=== PATIENT | female | born 1955 | race Hispanic/Latino ===

== ENCOUNTER → 2018-08-08 | Outpatient (CLI) | payer OTHER ==
--- NOTE | 2018-08-10 08:32 | Diagnostic Imaging Report ---
#[id number] - MGSCRBIL #BILATERAL DIGITAL SCREENING MAMMOGRAM WITH CAD: 08/08/2018 CLINICAL: Routine screening. Comparison is made to exams dated: 02/03/2017 mammogram and 05/20/2015 mammogram - [facility]. Current study contains 4 films. There are scattered fibroglandular elements in both breasts. Current study was also evaluated with a Computer Aided Detection (CAD) system. There is a benign calcification in both breasts. No significant masses, calcifications, or other findings are seen in either breast. There has been no significant interval change. IMPRESSION: BENIGN There is no mammographic evidence of malignancy. A 1 year screening mammogram is recommended. The patient will be notified by letter of the results. Pineda gabriel/delphine:08/09/2018 15:05:53 [employer]: Arielle LOJA(R)(M), [facility] letter sent: Compared to Prior B9 Mammogram BI-RADS: 2 Benign
== END ==
LOC: MAMMO 10:33
PROVIDERS: ATTEND Internal Medicine
DX: Z12.31 Encounter for screening mammogram for malignant neoplasm of breast (principal)
CPT/HCPCS: 77067

== ENCOUNTER 2020-11-22 15:39 | Emergency (ER) | payer SELFPAY ==
[~2020-11-22] VITALS: Ht 160 cm; Wt 68.0 kg
[2020-11-22] MEDS ORDERED: IBUPROFEN 600 MG TAB PO STA (16:46)
[2020-11-22] MEDS ORDERED: HYDROCODONE/APAP 5MG-325MG TAB PO ONE (17:00)
[2020-11-22] MEDS ORDERED: HYDROCODONE/APAP 5MG-325MG TAB ONE (17:21)
[2020-11-22] MEDS ORDERED: IBUPROFEN 600 MG TAB ONE (17:21)
[2020-11-22] MEDS ORDERED: HYDROCODON-ACE1 EA11 PO ×2 (19:04→19:08)
[2020-11-22] MEDS ORDERED: IBUPROFEN600 MG PO (19:09)
[2020-11-22 19:20] VITALS: BP 139/72
== END 2020-11-22 19:20 | disposition home or self-care (01) ==
LOC: FSED 15:43
DX: S52.125A Nondisplaced fracture of head of left radius, initial encounter for closed fracture (principal); W17.89XA Other fall from one level to another, initial encounter; Y92.008 Other place in unspecified non-institutional (private) residence as the place of occurrence of the external cause
CPT/HCPCS: 70450; 99284

== ENCOUNTER → 2022-10-15 | Outpatient (CLI) | payer OTHER ==
[~2022-10-15] MED LIST: HYDROCODON-ACE1 EA11 PO; IBUPROFEN600 MG PO
== END ==
LOC: EDBD 10-07 09:30 → MAMMO 10:08
PROVIDERS: ATTEND Internal Medicine
DX: Z12.31 Encounter for screening mammogram for malignant neoplasm of breast (principal); E11.51 Type 2 diabetes mellitus with diabetic peripheral angiopathy without gangrene
CPT/HCPCS: 77067

== ENCOUNTER → 2023-10-13 | Outpatient (REF) | payer OTHER | LOC: MAMMO 09:47 | PROVIDERS: ATTEND Internal Medicine | DX: Z12.31 Encounter for screening mammogram for malignant neoplasm of breast (principal) | CPT/HCPCS: 77067 ==

== ENCOUNTER 2024-04-19 10:09 | Emergency (ER) | payer OTHER ==
[~2024-04-19] VITALS: Ht 160 cm; Wt 64.9 kg
[2024-04-19] MEDS: ACETAMINOPHEN 325 MG TAB PO ONE (10:33)
[2024-04-19 11:22] VITALS: PULSE 91; RESP 18; TEMP 99.5; O2SAT 95
== END 2024-04-19 11:20 | disposition home or self-care (01) ==
LOC: FSED 10:13
DX: R50.9 Fever, unspecified (principal); J06.9 Acute upper respiratory infection, unspecified; R05.9 Cough, unspecified; I10 Essential (primary) hypertension; E11.9 Type 2 diabetes mellitus without complications; E78.5 Hyperlipidemia, unspecified; Z11.52 Encounter for screening for COVID-19
CPT/HCPCS: 0223U; 71046; 81003; 83518; 87400; 99284

== ENCOUNTER → 2024-05-04 | Outpatient (REF) | payer OTHER | LOC: RAD 10:47 | PROVIDERS: ATTEND Internal Medicine | DX: U09.9 Post COVID-19 condition, unspecified (principal) | CPT/HCPCS: 71046 ==

== ENCOUNTER 2025-06-03 15:41 | Emergency (ER) | payer MEDICARE, OTHER ==
[~2025-06-03] VITALS: Ht 160 cm; Wt 64.0 kg
[2025-06-03 15:45] VITALS: PULSE 84; RESP 20; TEMP 97.9
[2025-06-03] MEDS: SODIUM CHLORIDE 0.9% 1000ML 1,000 ML IV ONE (16:03)
[2025-06-03] MEDS ORDERED: IOPAMIDOL 370 MG/ML 100 ML INFUS..BTL INJ ONE (16:27)
[2025-06-03] MEDS ORDERED: DICYCLOMINE HCL10 MG PO (18:54)
[2025-06-03 19:04] VITALS: BP 130/61; PULSE 76; RESP 18; TEMP 97.9; O2SAT 98
== END 2025-06-03 19:04 | disposition home or self-care (01) ==
LOC: FSED 15:45
DX: K57.30 Diverticulosis of large intestine without perforation or abscess without bleeding (principal); I10 Essential (primary) hypertension; E78.5 Hyperlipidemia, unspecified; E11.9 Type 2 diabetes mellitus without complications; Z79.84 Long term (current) use of oral hypoglycemic drugs
CPT/HCPCS: 74177; 80053; 81003; 85025; 99284; J7030; Q9967